=== PATIENT | male | born 1970 | race American Indian/Alaskan Native ===

== ENCOUNTER 2017-04-08 20:39 | Inpatient (IN) | payer OTHER ==
--- NOTE | 2017-04-08 21:11 | ED PDOC ---
Arrival/HPI - General Chief Complaint: Syncope Time Seen by Provider: 04/08/17 20:42 Historian: Patient, Spouse - History of Present Illness Narrative History of Present Illness (Text): 04/08/17 20:52 Moncho Ronquillo is a 46 year old male, whose past medical history includes chronic kidney disease on hemodialysis, hypertension, hyperlipidemia, IDDM, and CHF, who presents to the Emergency department accompanied by status post syncopal episode. states she was walking down the stairs with the patient when he began looking "off" and became very pale. states patient lost consciousness and she caught him before he fell to the floor. Wfe states after patient regained consciousness he had 1 episode of vomiting. notes patient was fully dialyzed earlier today and has experienced similar episodes in the past. Patient denies any fever, chills, chest pain, shortness of breath, diarrhea, urinary symptoms, back pain, neck pain, headache, dizziness, or any other complaints. PMD: Dr. Emy Vegas Time/Duration: Other (tonight) Symptom Onset: Gradual Symptom Course: Unchanged Activities at Onset: Rest, Light Context: Home Past Medical History - Provider Review Nursing Documentation Reviewed: Yes - Infectious Disease Hx of Infectious Diseases: None - Tetanus Immunization Tetanus Immunization: Unknown - Cardiac Hx Cardiac Disorders: Yes Hx Angina: Yes Hx Congestive Heart Failure: Yes Hx Hypertension: Yes Hx Peripheral Edema: Yes (ble) - Pulmonary Hx Respiratory Disorders: Yes (hypoxemia) Hx Sleep Apnea: Yes (on CPAP ) - Renal Hx Renal Disorder: Yes (JUVENTINO in the past) - Endocrine/Metabolic Hx Diabetes Mellitus Type 2: Yes (on insulin) - Hematological/Oncological Hx Blood Disorders: No - Musculoskeletal/Rheumatological Hx Falls: No - Psychiatric Hx Depression: No Hx Emotional Abuse: No Hx Physical Abuse: No Hx Substance Use: No - Past Surgical History Past Surgical History: No Previous - Anesthesia Hx Anesthesia: No Hx Anesthesia Reactions: No Hx Malignant Hyperthermia: No - Suicidal Assessment Feels Threatened In Home Enviroment: No Family/Social History - Physician Review Nursing Documentation Reviewed: Yes Family/Social History: Unknown Family HX Smoking Status: Former Smoker Hx Alcohol Use: No Hx Substance Use: No Hx Substance Use Treatment: No Allergies/Home Meds Allergies/Adverse Reactions: Allergies No Known Allergies Allergy (Verified 07/15/13 15:17) Home Medications: Home Meds Medication Instructions Recorded Confirmed Furosemide [Lasix] 40 mg PO BID PRN 06/21/16 04/08/17 Review of Systems - Physician Review All systems were reviewed & negative as marked: Yes - Review of Systems Constitutional: Normal. absent: Fevers Eyes: Normal ENT: Normal Respiratory: Normal. absent: SOB, Cough Cardiovascular: Syncope Gastrointestinal: Vomiting. absent: Abdominal Pain, Diarrhea Genitourinary Male: Normal. absent: Dysuria, Frequency, Hematuria, Urinary Output Changes Musculoskeletal: Normal. absent: Back Pain, Neck Pain Skin: Normal Neurological: Normal. absent: Headache, Dizziness Endocrine: Normal Hemo/Lymphatic: Normal Psychiatric: Normal Physical Exam Vital Signs Reviewed: Yes Vital Signs Temp Pulse Resp BP Pulse Ox 04/09/17 01:05 79 17 114/48 L 98 04/08/17 23:27 76 20 116/59 L 96 04/08/17 20:41 98.7 F 58 L 16 101/65 96 Temperature: Afebrile Blood Pressure: Normal Pulse: Regular Respiratory Rate: Normal Appearance: Positive for: Well-Appearing, Non-Toxic, Comfortable Pain Distress: None Mental Status: Positive for: Alert and Oriented X 3 Finger Stick Blood Glucose: 169 - Systems Exam Head: Present: Atraumatic, Normocephalic Pupils: Present: PERRL Extroacular Muscles: Present: EOMI Conjunctiva: Present: Normal Ears: Present: Normal, NORMAL TM, Normal Canal. No: Erythema, TM Bulging, Fluid , TM Perf Mouth: Present: Moist Mucous Membranes Pharnyx: Present: Normal. No: ERYTHEMA, EXUDATE, TONSILS ENLARGED, Peritonsilar Swelling, Uvular Deviation, Muffled/Hoarse Voice, Strider, Soft Palate/Uvular Edema Neck: Present: Normal Range of Motion. No: Meningeal Signs, MIDLINE TENDERNESS , Paraspinal Tenderness Respiratory/Chest: Present: Clear to Auscultation, Good Air Exchange. No: Respiratory Distress, Accessory Muscle Use Cardiovascular: Present: Regular Rate and Rhythm, Normal S1, S2. No: Murmurs Abdomen: Present: Normal Bowel Sounds. No: Tenderness, Distention, Peritoneal Signs Back: Present: Normal Inspection Upper Extremity: Present: Normal Inspection. No: Cyanosis, Edema Lower Extremity: Present: Normal Inspection. No: Edema Neurological: Present: GCS=15, CN II-XII Intact, Speech Normal, Motor Func Grossly Intact, Normal Sensory Function, Normal Cerebellar Funct, Memory Normal Skin: Present: Warm, Dry, Normal Color. No: Rashes Psychiatric: Present: Alert, Oriented x 3, Normal Insight, Normal Concentration Medical Decision Making ED Course and Treatment: 04/08/17 20:52 Impression: 46 year old male presents s/p syncopal episode tonight. Differential Diagnosis included but are not limited to: syncope Plan: -- CT Head w/o contrast -- EKG -- CXR -- Labs, troponin, blood cultures -- Reassess and disposition Prior Visits: Notes and results from previous visits were reviewed. On 06/18/2016, pt was seen in the Emergency department for increased blurry vision and leg swelling. Pt was admitted to the hospital for further evaluation. Progress Notes: Reviewed EKG, sinus tachycardia at [address] bpm[address] Non-specific ST/T wave changes. 04/08/17 22:15 Reviewed CXR, shows no acute processes. 04/08/17 22:[address] Head, shows: 1. No acute intracranial hemorrhage or acute territorial type infarct. 2. Mild atrophy. 3. Within the right frontal convexity, there is a small extra-axial lesion with an adjacent defect of the inner table of the skull. This lesion measures approximately 0.9 x 0.6 cm. One possible etiology is a meningioma, although additional etiologies cannot be excluded. A nonemergent MRI with/without contrast is recommended. 04/08/17 22:[address] Vegas, who is aware and agrees with plan. Accepts pt in to his service. Pt will go to Telemetry observation for syncope. Pt is no acute distress. Discussed results and hospital observation plan with pt , who is aware and verbalizes understanding. - Lab Interpretations Lab Results: 04/08/17 21:20 04/08/17 21:20 Lab Results 04/08/17 21:20: PT 11.0, INR 1.02, APTT 23.6 L 04/08/17 21:20: WBC 5.9 D, RBC 3.77, Hgb 10.5 L, Hct 33.3 L, MCV 88.3, MCH 27.9 , MCHC 31.5, RDW 15.6 H, Plt Count 139, MPV 9.2, Gran % 73.4 H, Lymph % (Auto) 16.8 L, [place] % (Auto) 7.3 H, Eos % (Auto) 2.2, Baso % (Auto) 0.3, Gran # 4.32, Lymph # 1.0 L, [place] # 0.4, Eos # 0.1, Baso # 0.02 04/08/17 21:20: Sodium 140, Potassium 3.8, Chloride 94 L, Carbon Dioxide 32, Anion Gap 18, BUN 38 H, Creatinine , Est GFR ( Amer) 7, Est GFR (Non-Af Amer) 6, Random Glucose 156 H, Calcium 9.5, Total Bilirubin 0.7, AST 40, ALT 24 , Alkaline Phosphatase 74, Troponin I 0.05 D, Total Protein 8.4 H, Albumin 4.5 , Globulin 3.8, Albumin/Globulin Ratio 1.2 I have reviewed the lab results: Yes - RAD Interpretation Narrative RAD Interpretations (Text): Chest X-ray shows no acute processes. CT Head shows: Brain: Within the right frontal convexity, there is a small extra-axial lesion with an adjacent defect of the inner table of the skull. This lesion measures approximately 0.9 x 0.6 cm. One possible etiology is a meningioma, although additional etiologies cannot be excluded. The white- gardner differentiation is preserved demonstrating no acute territorial type infarct. There is mild prominence of the ventricles and sulci, compatible with atrophy. No acute intracranial hemorrhage is seen. Midline shift: There is no midline shift. Ventricles: See above. Bones/joints: The calvarium demonstrates no evidence for a depressed fracture. Soft tissues: No acute abnormality. Vasculature: There is atherosclerotic calcification of the cavernous internal carotid arteries. Sinuses: Unremarkable as visualized. No acute sinusitis. Mastoid air cells: No mastoid effusion. IMPRESSION: 1. No acute intracranial hemorrhage or acute territorial type infarct. 2. Mild atrophy. 3. Within the right frontal convexity, there is a small extra-axial lesion with an adjacent defect of the inner table of the skull. This lesion measures approximately 0.9 x 0.6 cm. One possible etiology is a meningioma, although additional etiologies cannot be excluded. A nonemergent MRI with/without contrast is recommended. Radiology Orders: 04/08/17 20:52 HEAD W/O CONTRAST [CT] Stat 04/08/17 20:58 CHEST ONE VIEW [RAD] Stat Medical Technologist Generalist: ED Physician, Radiologist - EKG Interpretation Interpreted by ED Physician: Yes Type: 12 lead EKG - Medication Orders Current Medication Orders: Acetaminophen (Tylenol 325mg Tab) 650 mg PO Q4H PRN PRN Reason: Pain, Mild (1-3) Insulin Human Regular (Humulin R Low) 0 units SC ACHS [facility] PRN Reason: Protocol - Scribe Statement The provider has reviewed the documentation as recorded by the Scribe Radha Gilliam Provider Attestation: All medical record entries made by the Scribe were at my direction and personally dictated by me. I have reviewed the chart and agree that the record accurately reflects my personal performance of the history, physical exam, medical decision making, and the department course for this patient. I have also personally directed, reviewed, and agree with the discharge instructions and disposition. Disposition/Present on Arrival - Present on Arrival Any Indicators Present on Arrival: No History of DVT/PE: No History of Uncontrolled Diabetes: Yes Urinary Catheter: No History of Decub. Ulcer: No History Surgical Site Infection Following: None - Disposition Have Diagnosis and Disposition been Completed?: Yes Diagnosis: Syncope Disposition: HOSPITALIZED Disposition Time: 23:00 Condition: GOOD
[2017-04-08 21:30] LABS: ADD MANUAL DIFF? NO
[2017-04-08 21:34] LABS: BASO # 0.02 K/mm3 (0.0-2.0); BASO % 0.3 % (0.0-3.0); EOS # 0.1 (0.0-0.7); EOS % 2.2 % (1.5-5.0); GRAN # 4.32 (1.4-6.5); GRAN % 73.4 % (50.0-68.0); HEMATOCRIT 33.3 % (42.0-52.0); LYMPH % 16.8 % (22.0-35.0); MEAN CELL VOLUME 88.3 fL (80.0-105.0); MEAN CORPUSCULAR HEMOGLOBIN 27.9 pg (25.0-35.0); MEAN CORPUSCULAR HGB CONC 31.5 g/dl (31.0-37.0); MEAN PLATELET VOLUME 9.2 fl (7.0-11.0); MONO # 0.4 (0.1-0.6); MONO % 7.3 % (1.0-6.0); PLATELET COUNT 139 10^3/uL (120.0-450.0); RED CELL DISTRIBUTION WIDTH 15.6 % (11.5-14.5); WHITE BLOOD COUNT 5.9 10^3/ul (4.5-11.0)
[2017-04-08 21:44] LABS: ALB/GLOB RATIO 1.2 (1.1-1.8); BILIRUBIN,TOTAL 0.7 mg/dL (0.2-1.3); CALCIUM 9.5 mg/dL (8.4-10.5); POTASSIUM 3.8 mmol/L (3.6-5.0); TOTAL PROTEIN 8.4 g/dL (5.8-8.3)
[2017-04-08 21:45] LABS: INR 1.02 (0.93-1.08); PARTIAL THROMBOPLASTIN TIME 23.6 Seconds (23.7-30.8)
[2017-04-08 21:55] LABS: TROPONIN I 0.05 ng/mL
--- NOTE | 2017-04-08 22:33 | CT ---
EXAM: CT Head Without Intravenous Contrast CLINICAL HISTORY: The patient age is 46 years old and is male; Signs and symptoms; Dizziness and other: Nausea; Patient HX: Dizziness, light headed and nausea post dialysis today; Additional info: Syncope Facility exam id and description: Ct heads head w/o contrast TECHNIQUE: Axial computed tomography images of the head/brain without intravenous contrast. This CT exam was performed using one or more of the following dose reduction techniques: automated exposure control, adjustment of the mA and/or kV according to patient size, and/or use of iterative reconstruction technique. EXAM DATE/TIME: 04/08/2017 8:52 PM COMPARISON: No relevant prior studies available. FINDINGS: Brain: Within the right frontal convexity, there is a small extra-axial lesion with an adjacent defect of the inner table of the skull. This lesion measures approximately 0.9 x 0.6 cm. One possible etiology is a meningioma, although additional etiologies cannot be excluded. The white-gardner differentiation is preserved demonstrating no acute territorial type infarct. There is mild prominence of the ventricles and sulci, compatible with atrophy. No acute intracranial hemorrhage is seen. Midline shift: There is no midline shift. Ventricles: See above. Bones/joints: The calvarium demonstrates no evidence for a depressed fracture. Soft tissues: No acute abnormality. Vasculature: There is atherosclerotic calcification of the cavernous internal carotid arteries. Sinuses: Unremarkable as visualized. No acute sinusitis. Mastoid air cells: No mastoid effusion. IMPRESSION: 1. No acute intracranial hemorrhage or acute territorial type infarct. 2. Mild atrophy. 3. Within the right frontal convexity, there is a small extra-axial lesion with an adjacent defect of the inner table of the skull. This lesion measures approximately 0.9 x 0.6 cm. One possible etiology is a meningioma, although additional etiologies cannot be excluded. A nonemergent MRI with/without contrast is recommended.
[2017-04-09 03:00] VITALS: BMI 43.0
[2017-04-09] MEDS: Insulin Reg-LOW-Coverage SC SCH ×4 (08:18→22:48)
--- NOTE | 2017-04-09 08:39 | HP ---
HISTORY OF PRESENT ILLNESS: This is a 46-year-old -Turk[place] male who was referred to [facility], brought in by ambulance when he had a syncopal episode at his family's home. The pat arnol was status post dialysis earlier in the day. This is the second episode in the last several wee ks where the patient was reported as having a syncopal episode. He was previously admitted to [facility] in [place], [place]. He recently had started dialysis for chronic kidney disease. He has a history of insulin-dependent diabetes, cardiomyopathy, hypertension. ALLERGIES: He has no known allergies. SOCIAL HISTORY: He is a nonsmoker, nondrinker, nondrug user. HOME MEDICATIONS: The only thing that is listed in the system is Lasix. He is not sure of all the m eds that he is taking at the moment. He states that over the last several weeks people have been aiden nging his meds around. REVIEW OF SYSTEMS: Twelve systems are reviewed. Pertinent findings as stated above. PHYSICAL EXAMINATION: VITAL SIGNS: His temp is now 98, his pulse is 79, his blood pressure is 114/48, his respiratory rate is 20, his oxygen sat is 98% on room air. GENERAL: He is alert and oriented x 3. NECK: Supple. HEART: S1, S2 rhythm. CHEST: There is a catheter in the right chest which they have been using for dialysis. He states th at this past Thursday he was at a [facility] where they dilated a vein in his left upper arm in anti cipation of doing dialysis. ABDOMEN: Obese, soft with positive bowel sounds. EXTREMITIES: Show trace edema. LABORATORY DATA: His sodium is 140, potassium 3.8, chloride 94, BUN 38, creatinine 9.4, blood sugar was 156. His troponin was 0.05. His total protein is 8.4. His PT is 11 with an INR of 1.02, PTT is 23.6. CBC shows WBC of 5.9, RBC 3.77, hemoglobin 10.5, hematocrit 33.3, platelet count 139. The CAT scan of the head was reviewed by a radiologist who is documenting that there is no acute intr acranial hemorrhage or acute territorial infarct. There is mild atrophy, and he is stating that with in the right frontal convexity there is a small extraaxial lesion with adjacent defect in the inner t able of the skull measuring 0.9 x 0.6 cm. Possible etiology as per the radiologist is hemangioma. C hest x-ray was reported as being clear through the Emergency Room. IMPRESSION: 1. Syncope. 2. Chronic renal disease. 3. Uncontrolled insulin-dependent diabetes. 4. History of heart disease, cardiomyopathy. I have discussed the clinical findings and diagnostic studies to this point with the patient and his . Will request the individual consultants to coordinate the patient's care and assess these recu rrent episodes of syncope that the patient is having. I adjusted his insulin requirements. I have a lso discussed with the patient the need for closer followup. More than 40 minutes have been spent re viewing the studies, discussing these findings and plan of care. Will get serial cardiac enzymes. T he patient will be followed with fingerstick blood sugars at this time. Shaina Vegas MD cc: [id number] TT: 04/09/2017 08:38:56 mn
[2017-04-09 09:19] LABS: ADD MANUAL DIFF? NO
[2017-04-09 09:29] LABS: BASO # 0.02 K/mm3 (0.0-2.0); BASO % 0.4 % (0.0-3.0); EOS # 0.1 (0.0-0.7); EOS % 2.1 % (1.5-5.0); GRAN # 3.53 (1.4-6.5); GRAN % 67.9 % (50.0-68.0); HEMATOCRIT 32.1 % (42.0-52.0); LYMPH # 1.1 (1.2-3.4); LYMPH % 21.9 % (22.0-35.0); MEAN CELL VOLUME 89.2 fL (80.0-105.0); MEAN CORPUSCULAR HEMOGLOBIN 27.8 pg (25.0-35.0); MEAN CORPUSCULAR HGB CONC 31.2 g/dl (31.0-37.0); MONO # 0.4 (0.1-0.6); MONO % 7.7 % (1.0-6.0); PLATELET COUNT 129 10^3/uL (120.0-450.0); RED CELL DISTRIBUTION WIDTH 15.7 % (11.5-14.5); WHITE BLOOD COUNT 5.2 10^3/ul (4.5-11.0)
[2017-04-09 09:36] LABS: ALB/GLOB RATIO 1.2 (1.1-1.8); BILIRUBIN,TOTAL 0.7 mg/dL (0.2-1.3); CALCIUM 9.3 mg/dL (8.4-10.5); POTASSIUM 4.4 mmol/L (3.6-5.0); TOTAL PROTEIN 7.7 g/dL (5.8-8.3)
[2017-04-09 09:47] LABS: TROPONIN I 0.06 ng/mL
--- NOTE | 2017-04-09 09:54 | RAD ---
PROCEDURE: CHEST RADIOGRAPH, 1 VIEW HISTORY: Pain COMPARISON: 06/18/2016. FINDINGS: The right central venous catheter terminates in the SVC. LUNGS: The lungs are clear. PLEURA: No pneumothorax or pleural fluid seen. CARDIOVASCULAR: Normal. OSSEOUS STRUCTURES: No significant abnormalities. VISUALIZED UPPER ABDOMEN: Normal. OTHER FINDINGS: None. IMPRESSION: No acute findings.
--- NOTE | 2017-04-09 11:19 | CP.PCM.CON ---
History of Present Illness - History of Present Illness History of Present Illness: Initial Nephrology Consultation: Assessment: Stable Diabetic chronic Kidney Disease (E11.22) biopsy proven Hypertensive Chronic Kidney Disease (I12.0) End stage renal disease (N18.6) dependence on hemodialysis (Z99.2) (MWF) via permacath Anemia (D64.9), Hyperphosphatemia (E83.39), Secondary Hyperparathyroidism (E21.1 ), HTN (I12.0) morbid obesity dizziness/syncope ? hemodynamic due to fluid removal during HD and his significant wt loss over time. Plan: No acute need for dialysis today. Will plan for dialysis tomorrow. Continue with Nephrovite 1 tab/day. PRBC as needed for anemia. On MELANY as Mircera 50 mcg q 2 weeks, last Hb 10.5 Continue with phos binders home dose, last phos level 4.7 Continue with calcitriol 0.5 mcg with dialysis. Last PTH level 951 BP controlled without meds. Pt was advised to limit weight gain between dialysis treatment to 1 Kgs/day. will likely need to increase his EDW as outpt. Glycemic control, Dialysis consistent diet Further work up/management as per primary team. neurology and cardiology were requested to evaluate him. Dose meds/antibiotics (if needed) for ESRD status. Avoid fleets enema/magnesium based laxatives. Thanks for allowing me to participate in care of your patient. Will follow patient with you. Please call if any Qs Dr Pedro Denton Office: [phone] Chief Complaint; dizziness and loss of consciousness HPI: Pt is a 46 y/o M with hx of ESRD on hemodialysis (MWF) via Rt chest permacath, has maturing left AVF, last dialysis yesterday, chronic anemia, hyperphosphatemia, secondary hyperparathyroidism, Diabetes Mellitus, hypertension, morbid obesity presented with complaints of dizziness and transient loss of consciousness at home yesterday evening. pt says he finished dialysis at 6:30 in evening, 3.7 Kgs was taken off and he left the unit at 144.6 Kgs. At home, he had episode of dizziness soon after his EDW was lowered from 149 kgs to 145 kgs over last 2 weeks. pt says he had lost close to 60 lbs weight over last few month. reports similar incidence 2 weeks ago when his all BP meds were stopped. he was admitted to [facility] in february 2017 and started on dialysis due to uremic. he has biopsy proven diabetic nephropathy. Denies chest pain, palpitation, shortness of breath, leg swelling he feels usual self at this time ROS: Constitutional Symptoms: Denies fever. No chills. had significant Wt loss Eyes: denies change in vision, denies watery eyes, denies double vision Ears/Nose/Mouth/Throat: Denies Abnormal Taste. No Bad breath or Bad Taste. Cardiovascular: No chest pain. There is no shortness of breath. No palpitations. Pulmonary: No shortness of breath or cough. Gastrointestinal: denies abdominal pain No nausea. No vomiting. Denies change in bowel habits. Denies Bleeding Genitourinary: makes small urine. No associated pain or blood. Neurological: Denies headaches. c/o dizziness and loss of consciousness yesterday. Denies loss of balance. Denies weakness, denies tingling/numbness Dermatological: No Rash or Bruising or ulcers. Psychiatric: Denies Anxiety. No depression. Denies hallucinations. Rheumatological: No joint pain. Denies Joint swelling Endocrine: Denies over tiredness. Denies Fatigue and denies Heat/Cold Intolerance. All other negative. Physical Examination: General Appearance: Comfortable, in no acute respiratory distress, co-operative . morbid obese Vitals reviewed and noted as below BMI 43 Head; Atraumatic, normocephalic ENT: no ulcers no thrush. Tongue is midline. Oropharynx: no rash or ulcers. EYES: Pupils are equal, round and reactive to light accommodation. Eye muscles and extraocular movement intact. Sclera is anicteric. Neck; supple no lymphadenopathy, no thyromegaly or bruit Lungs: Normal respiratory rate/effort. Breath sounds bilateral equal and clear. Rt chest permacath Heart: Normal rate. s1s2 normal. No rub or gallop. Extremities: no edema. No varicose veins Neurological: Patient is alert, awake and oriented to person, place and time. No focal deficit. Strength bilateral appropriate and equal Skin: Warm and dry. Normal turgor. No rash. Palpitation: Normal elasticity for age Abdomen: Abdomen is soft. Bowel sounds +. There is no abdominal tenderness, no guarding/rigidity or organomegaly Psych: normal insight and normal affect/mood MSK: no joint tenderness or swelling. Digits and nails normal, no deformity : kidney or bladder not palpable Access: left arm AVF Labs/imaging reviewed. Past medical history, past surgical history, family history, social history, allergy reviewed and noted as below Family Hx: no hx of CKD. Non contributory echo february 2017: normal LVEF Past Patient History - Infectious Disease Hx of Infectious Diseases: None - Tetanus Immunizations Tetanus Immunization: Unknown - Past Social History Smoking Status: Former Smoker - CARDIAC Hx Cardiac Disorders: Yes Hx Angina: Yes Hx Congestive Heart Failure: Yes Hx Hypertension: Yes Hx Peripheral Edema: Yes (ble) - PULMONARY Hx Respiratory Disorders: Yes (hypoxemia) Hx Sleep Apnea: Yes (on CPAP ) - NEUROLOGICAL Hx Neurological Disorder: Yes Other/Comment: syncope - HEENT Hx HEENT Problems: No - RENAL Hx Chronic Kidney Disease: Yes (JUVENTINO in the past) - ENDOCRINE/METABOLIC Hx Diabetes Mellitus Type 2: Yes (on insulin) - HEMATOLOGICAL/ONCOLOGICAL Hx Blood Disorders: No - INTEGUMENTARY Hx Dermatological Problems: No - MUSCULOSKELETAL/RHEUMATOLOGICAL Hx Falls: No - GASTROINTESTINAL Hx Gastrointestinal Disorders: No - GENITOURINARY/GYNECOLOGICAL Hx Genitourinary Disorders: No - PSYCHIATRIC Hx Depression: No Hx Emotional Abuse: No Hx Physical Abuse: No Hx Substance Use: No - SURGICAL HISTORY Hx Surgeries: No - ANESTHESIA Hx Anesthesia: No Hx Anesthesia Reactions: No Hx Malignant Hyperthermia: No Meds Allergies/Adverse Reactions: Allergies Allergy/AdvReac Type Severity Reaction Status Date / Time No Known Allergies Allergy Verified 07/15/13 15:17 - Medications Medications: Current Medications Acetaminophen (Tylenol 325mg Tab) 650 mg PO Q4H PRN PRN Reason: Pain, Mild (1-3) Insulin Human Regular (Humulin R Low) 0 units SC ACHS [facility] PRN Reason: Protocol Last Admin: 04/09/17 08:18 Dose: Not Given Vitamin B Complex/Vit C/Folic Acid (Nephro-Ynes) 1 tab PO 0800 [facility] Results - Vital Signs Recent Vital Signs: Last Vital Signs Temp 98 F 04/09/17 06:00 Pulse 86 04/09/17 10:59 Resp 13 04/09/17 10:59 BP 145/67 04/09/17 10:59 Pulse Ox 93 L 04/09/17 08:00 - Labs Result Diagrams: 04/09/17 08:00 04/09/17 08:00 Labs: Laboratory Results - last 24 hr 04/09/17 04/09/17 08:00 08:00 WBC 5.2 RBC 3.60 Hgb 10.0 L Hct 32.1 L MCV 89.2 MCH 27.8 MCHC 31.2 RDW 15.7 H Plt Count 129 MPV 9.0 Gran % 67.9 Lymph % (Auto) 21.9 L [place] % (Auto) 7.7 H Eos % (Auto) 2.1 Baso % (Auto) 0.4 Gran # 3.53 Lymph # 1.1 L [place] # 0.4 Eos # 0.1 Baso # 0.02 Sodium 138 Potassium 4.4 Chloride 95 L Carbon Dioxide 30 Anion Gap 17 BUN 45 H Creatinine 11.2 H* Est GFR ( Amer) 6 Est GFR (Non-Af Amer) 5 Random Glucose 155 H Calcium 9.3 Total Bilirubin 0.7 AST 23 ALT 25 Alkaline Phosphatase 61 Lactate Dehydrogenase 461 Total Creatine Kinase 174 Troponin I 0.06 Total Protein 7.7 Albumin 4.2 Globulin 3.5 Albumin/Globulin Ratio 1.2
[2017-04-09 15:34] LABS: TROPONIN I 0.05 ng/mL
--- NOTE | 2017-04-09 19:29 | CON ---
DATE: 04/09/2017 HISTORY OF PRESENT ILLNESS: This is a 46-year-old black male with past medical history of chronic ki dney disease on hemodialysis, hypertension, hyperlipidemia, insulin-dependent diabetes, CHF. Came to the Emergency Room with a syncopal episode and patient's says that walking down the stairs and began to feel like passing out. Became pale and he lost consciousness and she caught him before he c ould fall on the floor. The patient regained consciousness and had one episode of vomiting. No head aches, no dizziness. Called to evaluate the patient. CAT scan of the head was done. CT showed poss ible right frontal meningioma. ALLERGIES: No known drug allergies. REVIEW OF SYSTEMS: A 10-point review of system was negative except as noted above syncopal episode. PHYSICAL EXAMINATION: VITAL SIGNS: Blood pressure 101/65. HEENT: Normocephalic, atraumatic. NECK: Supple. NEUROLOGIC: Alert, awake, oriented. No aphasia. Cranial nerves II-XII were tested. Pupils reactiv e. EOM intact. Visual wesley full. No facial asymmetry. Tongue midline. Motor examination: Move s all the extremities equally. Tone normal. Deep tendon reflexes 1+. Both plantars downgoing. Sen marie appears intact. Cerebellar, gait was deferred. IMPRESSION: Syncope, less likely a seizure. CAT scan of the head was done, which showed possible ri ght frontal meningioma. The patient also has kidney failure, on hemodialysis. Workup in progress. We will follow up. Damián Urbina MD cc: [id number] TT: 04/09/2017 19:28:06 Confirmation # [id number] Dictation # [id number] sn
--- NOTE | 2017-04-09 20:42 | CON ---
DATE: 04/09/2017 LOCATION: ICU 128, room 5. HISTORY OF PRESENT ILLNESS: This is a 46-year-old male with known history of type 2 insulin-requirin g diabetes, presenting here with a sudden syncopal episode and brief loss of consciousness as witness ed by his and is now being admitted for cardiac and neurologic evaluation and also being referre d for diabetic management. PAST MEDICAL HISTORY: As mentioned above, history of type 2 diabetes, previously on insulin therapy, but has apparently been switched over to oral agents as per the family, but the exact name of the dc dications is not available at this time. History of hypertensive cardiovascular disease and dyslipid emia, history of diabetic retinopathy, polyneuropathy, and nephropathy with end-stage renal disease a nd dialysis dependence, history of coronary artery disease and peripheral arterial disease and vascul opathy. He actually developed the aforementioned syncopal episode a few hours after hemodialysis on the day of admission. FAMILY HISTORY: Positive for hypertension and diabetes. SOCIAL HISTORY: The patient has a supportive family. He has a prior history of smoking, but quit a few years ago. REVIEW OF SYSTEMS: As mentioned above, admits to generalized body weakness with easy fatigability an d tiredness and suboptimal energy level. Also admits to episodic bouts of dizziness and lightheadedn ess, worse on the day of admission, especially following hemodialysis as noted. No chest pains or pa lpitations or PNDs, but admits to episodic shortness of breath, especially on exertion. His oral int sonya has been variable and suboptimal as per the family with persistent dyspepsia and variable meal po rtions. Also, admits to habitual constipation. PHYSICAL EXAMINATION: GENERAL: This is an overweight male in no apparent distress. VITAL SIGNS: Blood pressure of 100/70, pulse of 74 beats per minute and regular, temperature 98, res pirations 20. HEENT: Head normocephalic. Eyes anicteric with pink conjunctivae. Fundoscopy not possible at this time. Ears, nose and throat otherwise normal. NECK: Supple. Thyroid gland is normal size. No carotid bruits. No cervical adenopathy. CARDIOPULMONARY: Some adynamic precordium. S1, S2 is rapid and regular. LUNGS: Clear to auscultation. ABDOMEN: Obese, soft with positive bowel sounds. EXTREMITIES: No peripheral edema. Pulses are +2 bilaterally. LABORATORY DATA: His chemistry showed a BUN of 45, sodium 138, potassium 4.4, chloride 95, CO2 30, g lucose 155, and creatinine 11.2. His glucose levels have ranged from 128-134 mg/dL. ASSESSMENT: This is a 46-year-old male with uncontrolled type 2 diabetes, presenting here with sudde n syncopal episode and the possibility of whether we are dealing with a cardiac versus neurologic carlene hugh metabolic etiology for a syncopal event, is being worked up at this time. With his variable and suboptimal meal portions, there is always a possibility of sudden symptomatic hypoglycemia with neuro glycopenic and hyperadrenergic manifestations of the same. PLAN OF MANAGEMENT: We will clarify with the family regarding the exact dosing of his oral hypoglyce tanner therapy and also the previous insulin therapy as undertaken and used by the patient. In the mean time, we will continue the low-dose correction scale using regular insulin as given and will observe his glycemic fluctuations and if fasting hyperglycemic levels persist and supervene, then we will sta rt him on a very low dose basal insulin therapy as indicated. If postprandial glycemic fluctuations supervene, then we will start him on low dose and short-acting oral hypoglycemic therapy such as Pran din, which is safe with renal patients and we will prescribe them accordingly. We will obtain a hemo globin A1c to confirm his prior glycemic control and baseline thyroid function studies will be ordere d. We will obtain serial chemistries and supplement accordingly as needed. We will follow. Annita Méndez MD cc: [id number] TT: 04/09/2017 20:41:51 Confirmation # [id number] Dictation # [id number] brendon
[2017-04-09 22:43] LABS: TROPONIN I 0.05 ng/mL
--- NOTE | 2017-04-09 23:55 | CARD ---
APPROVED REPORT EKG Measurement Heart [id number] <Conclusion> Sinus tachycardia with premature atrial complexes Possible Left atrial enlargement Septal infarct, age undetermined Abnormal ECG
[2017-04-10 06:35] LABS: ADD MANUAL DIFF? NO
[2017-04-10 07:16] LABS: BASO # 0.02 K/mm3 (0.0-2.0); BASO % 0.4 % (0.0-3.0); EOS # 0.2 (0.0-0.7); EOS % 3.4 % (1.5-5.0); GRAN # 2.87 (1.4-6.5); GRAN % 60.1 % (50.0-68.0); HEMATOCRIT 32.3 % (42.0-52.0); LYMPH # 1.2 (1.2-3.4); MEAN CELL VOLUME 87.1 fL (80.0-105.0); MEAN CORPUSCULAR HEMOGLOBIN 27.2 pg (25.0-35.0); MEAN CORPUSCULAR HGB CONC 31.3 g/dl (31.0-37.0); MEAN PLATELET VOLUME 9.3 fl (7.0-11.0); MONO # 0.5 (0.1-0.6); MONO % 10.1 % (1.0-6.0); PLATELET COUNT 146 10^3/uL (120.0-450.0); RED CELL DISTRIBUTION WIDTH 15.4 % (11.5-14.5); WHITE BLOOD COUNT 4.8 10^3/ul (4.5-11.0)
[2017-04-10] MEDS: Insulin Reg-LOW-Coverage SC SCH ×4 (07:30→23:25)
[2017-04-10 08:24] LABS: ALB/GLOB RATIO 1.3 (1.1-1.8); BILIRUBIN,TOTAL 0.5 mg/dL (0.2-1.3); CALCIUM 8.9 mg/dL (8.4-10.5); MAGNESIUM 2.5 mg/dL (1.7-2.2); PHOSPHOROUS 6.7 mg/dL (2.5-4.5); TOTAL PROTEIN 7.7 g/dL (5.8-8.3)
--- NOTE | 2017-04-10 10:11 | CON ---
DATE: 04/09/2017 SERVICE: Cardiology. REASON FOR CONSULTATION AND FOLLOWUP: Syncope, end-stage renal disease on dialysis, started 5 weeks ago. BRIEF CLINICAL HISTORY: This is a 46-year-old morbidly obese male with past medical history of chron ic renal insufficiency, history of uncontrolled hypertension in the past with the kidney, admitted ye sterday after having had 2 episodes of syncope after dialysis. The patient denies any chest pain, de nies any shortness of breath, denies any palpitation. The patient's is at the bedside. PAST MEDICAL HISTORY: Significant for morbid obesity, hypertension, hyperlipidemia, chronic kidney d isease, started on dialysis 5 weeks ago. Before, the patient was getting dialysis from right ____ no w the patient has an AV fistula. Past history is significant, as mentioned, morbid obesity. Previous cardiac workup as follows: The patient had a stress test 07/12/2014 that shows probably nor mal SPECT myocardial perfusion study, heterogeneous activity fixed defect, ejection fraction 51%. Th e patient had echocardiography 07/10/2014 that shows ejection fraction 50%-55%, trace aortic regurgit ation, moderate valvular aortic stenosis, trace mitral regurgitation, mild tricuspid regurgitation, R V systolic pressure 45. CURRENT MEDICATIONS: The patient is on Lasix home and some blood pressure medication, which was on h old after having syncope. REVIEW OF SYSTEMS: As per HPI. PHYSICAL EXAMINATION: VITAL SIGNS: Temperature afebrile, heart rate ____, blood pressure 145/60. HEENT: ____ PERRLA. Extraocular muscles intact. NECK: Supple. No carotid bruits. No thyromegaly. CHEST: Clear to auscultation. HEART: S1, S2 regular. ABDOMEN: Soft. EXTREMITIES: Clubbing and cyanosis negative. LABORATORY DATA: Blood workup as follows: WBC ____, hemoglobin ____, hematocrit 32.1, platelet coun t 129. Chemistry shows sodium 130, potassium 4.4, chloride 95, carbon dioxide 30, anion gap of 17, B UN 15, creatinine 11.2. IMPRESSION: Syncope, 2 episodes. The patient said that after dialysis, went to the mother's house an d was sitting on the stoop when patient's eyes rolled up and felt that he had lost conscious. Mom tr ied to wake him up, but did not respond. The patient was given orange juice and tuna fish and patien t felt better. Then, patient was going home. On the way, while the patient was sitting in the car, picked up and patient had another episode of syncope, so came here. Denies any chest pain, shor tness of breath, any palpitation. Prior to that, patient 3 weeks ago, after dialysis started, had a s yncopal episode and admitted ____ workup was negative. Possibly this syncope is associated with post -dialysis hemoconcentration and orthostatic hypotension, but cannot rule out underlying arrhythmia. History of mild to moderate aortic stenosis, last echo in 2013. History of stress is negative. End- stage renal disease on dialysis, morbid obesity, body mass index 45 kg/m2, more than 317 pounds of we ight. RECOMMENDATION: We will get echo to assess LV function. We will get orthostatic hypotension, monito r in ICU. The patient is in ICU to monitor for any arrhythmia. Also will get a Holter monitor. Dis cussed with Dr. Vegas, discussed with the family. We will follow with you. Som Ashley MD cc: [id number] TT: 04/09/2017 15:48:02 Confirmation # [id number] Dictation # [id number] brendon
--- NOTE | 2017-04-10 10:12 | PN ---
DATE: 04/10/2017 A 46-year-old male on dialysis this morning. PHYSICAL EXAMINATION: VITAL SIGNS: His temp is 98, his pulse is 83, blood pressure is 127/69, oxygen sat is 95% on room ai r, his respiratory rate is 18. GENERAL: He is alert and oriented x 3. He offers no specific complaints this morning. LUNGS: Clear. HEART: Has an S1, S2 rhythm. ABDOMEN: Obese, soft, positive bowel sounds. EXTREMITIES: Show no evidence of edema. LABORATORY DATA: Shows a WBC of 4.8, RBC 3.71, hemoglobin 10.1, hematocrit 32.3, platelet count 146. His chemistry shows a sodium 138, potassium 4, chloride 95, the BUN is 62, the creatinine was 14.2, his blood sugar was 123. Phosphorus is 6.7, magnesium 2.5. LFTs are normal. His second troponin w as 0.05. His cholesterol is 207, his triglycerides are 142. ASSESSMENT AND PLAN: 1. The patient had a syncopal episode, is being followed by neurology. Evaluation is in progress. 2. Cardiology consult has been requested. He has a history of cardiomyopathy. 3. He has uncontrolled insulin-dependent diabetes. Compliance is an issue. He is being seen by end ocrinology, Dr. Méndez. He is currently on a fingerstick coverage regimen, to be adjusted modified. He is currently on dialysis at this time. An echocardiogram has been ordered and pending. He is on a renal diet. We will continue to monitor his blood sugar. All of the clinical findings have been d iscussed with the patient as well as the findings that are suggestive on the [facility] be reviewed with neurology. Shaina Vegas MD cc: [id number] TT: 04/10/2017 10:06:25 Confirmation # [id number] Dictation # [id number] en
[2017-04-10] MEDS ORDERED: Multivitamin Vitamin B Complex (Nephro-Vite) Tab ONE (11:04)
[2017-04-10] MEDS: Multivitamin Vitamin B Complex (Nephro-Vite) Tab PO SCH (11:05)
--- NOTE | 2017-04-10 11:37 | CP.PCM.PN ---
Subjective - Date & Time of Evaluation Date of Evaluation: 04/10/17 Time of Evaluation: 11:30 - Subjective Subjective: Follow up Nephrology Consultation: Assessment: Stable Diabetic chronic Kidney Disease (E11.22) biopsy proven Hypertensive Chronic Kidney Disease (I12.0) End stage renal disease (N18.6) dependence on hemodialysis (Z99.2) (MWF) via permacath Anemia (D64.9), Hyperphosphatemia (E83.39), Secondary Hyperparathyroidism (E21.1 ), HTN (I12.0) morbid obesity dizziness/syncope ? hemodynamic due to fluid removal during HD Plan: Plan for dialysis today as ordered. next HD thursday. Continue with Nephrovite 1 tab/day. PRBC as needed for anemia. On MELANY as Mircera 50 mcg q 2 weeks, last Hb 10.7 started him on renagel, last phos level 6.7 Continue with calcitriol 0.5 mcg with dialysis. Last PTH level 951 BP controlled without meds. Pt was advised to limit weight gain between dialysis treatment to 1 Kgs/day. Increase his EDW to 146 kgs as outpt. Glycemic control, Dialysis consistent diet Further work up/management as per primary team. neurology and cardiology are following. plan for MRI brain, echo, holter Dose meds/antibiotics (if needed) for ESRD status. Avoid fleets enema/magnesium based laxatives. RN was asked to check ambulatory pulse Ox. d/w at bedside. Thanks for allowing me to participate in care of your patient. Will follow patient with you. Please call if any Qs Dr Pedro Denton Office: [phone] HPI: Pt is a 46 y/o M with hx of ESRD on hemodialysis (MWF) via Rt chest permacath, has maturing left AVF, last dialysis yesterday, chronic anemia, hyperphosphatemia, secondary hyperparathyroidism, Diabetes Mellitus, hypertension, morbid obesity presented with complaints of dizziness and transient loss of consciousness at home yesterday evening. pt says he finished dialysis at 6:30 in evening, 3.7 Kgs was taken off and he left the unit at 144.6 Kgs. At home, he had episode of dizziness soon after his EDW was lowered from 149 kgs to 145 kgs over last 2 weeks. pt says he had lost close to 60 lbs weight over last few month. reports similar incidence 2 weeks ago when his all BP meds were stopped. he was admitted to [facility] in february 2017 and started on dialysis due to uremic. he has biopsy proven diabetic nephropathy. ROS: Denies chest pain, palpitation, shortness of breath, leg swelling he feels usual self at this time. upset due to getting all the tests such as MRI and not going home yet. Physical Examination: General Appearance: Comfortable, in no acute respiratory distress, co-operative . morbid obese Vitals reviewed and noted as below BMI 43 Lungs: Normal respiratory rate/effort. Breath sounds bilateral equal and clear. Rt chest permacath Heart: Normal rate. s1s2 normal. No rub or gallop. Extremities: no edema. No varicose veins Neurological: Patient is alert, awake and oriented to person, place and time. No focal deficit. Strength bilateral appropriate and equal Skin: Warm and dry. Normal turgor. No rash. Palpitation: Normal elasticity for age Abdomen: Abdomen is soft. Bowel sounds +. There is no abdominal tenderness, no guarding/rigidity or organomegaly Psych: normal insight and normal affect/mood MSK: no joint tenderness or swelling. Digits and nails normal, no deformity : kidney or bladder not palpable Access: left arm AVF and chest permacath Labs/imaging reviewed. Past medical history, past surgical history, family history, social history, allergy reviewed and noted as below Family Hx: no hx of CKD. Non contributory echo february 2017: normal LVEF Objective - Vital Signs/Intake and Output Vital Signs (last 24 hours): Temp Pulse Resp BP Pulse Ox 98.0 F 85 18 127/69 95 04/10/17 06:00 04/10/17 06:00 04/10/17 06:00 04/10/17 06:00 04/10/17 06:00 - Medications Medications: Current Medications Acetaminophen (Tylenol 325mg Tab) 650 mg PO Q4H PRN PRN Reason: Pain, Mild (1-3) Calcitriol (Rocaltrol) 0.5 mcg PO MWF JORDAN Last Admin: 04/10/17 11:05 Dose: 0.5 mcg Heparin Sodium (Porcine) (Heparin) 2,000 units IVP ONCE JORDAN PRN Reason: Protocol Insulin Human Regular (Humulin R Low) 0 units SC ACHS JORDAN PRN Reason: Protocol Last Admin: 04/10/17 07:30 Dose: Not Given Sevelamer HCl (Renagel) 1,600 mg PO TID [facility] Last Admin: 04/10/17 11:04 Dose: 1,600 mg Vitamin B Complex/Vit C/Folic Acid (Nephro-Ynes) 1 tab PO 0800 [facility] Last Admin: 04/10/17 11:05 Dose: 1 tab - Labs Labs: 04/10/17 06:01 04/10/17 06:01 PT 11.0 Seconds (9.9-11.8) 04/08/17 21:20 INR 1.02 (0.93-1.08) 04/08/17 21:20 APTT 23.6 Seconds (23.7-30.8) L 04/08/17 21:20
--- NOTE | 2017-04-10 13:21 | PN ---
DATE: 04/10/2017 ROOM: 276 This is a 46-year-old male with recent uncontrolled type 2 insulin-requiring diabetes, presenting her e with a sudden syncopal episode with a brief bout of unresponsiveness and is now undergoing neurolog ic and cardiac workup thereof, and is also being followed closely for metabolic management. His oral intake is quite variable as per the nursing staff and his glucose values have remained near optimal at this time. His glucose levels have ranged from 121-123 and 164 mg/dL. His latest chemistry showed a BUN of 62, sodium 138, potassium 4.0, chloride 95, CO2 28, glucose 123 and creatinine 14.2. So at this time, we will continue the low-dose correction scale using regular insulin as ordered as h is A1c is actually 6.8%, which is near optimal in terms of his outpatient metabolic control. He may do very well on just a low-dose oral hypoglycemic drug therapy as indicated. We will start him on Pr andin medications if hyperglycemic levels supervene in the next day or so as noted. We will follow. Annita Méndez MD cc: [id number] TT: 04/10/2017 13:20:10 Confirmation # [id number] Dictation # [id number] en
--- NOTE | 2017-04-10 16:47 | PN ---
DATE: 04/10/2017 REASON FOR CONSULTATION AND FOLLOWUP: Syncope, end-stage renal disease on dialysis. Dialysis starte d 5 weeks ago. BRIEF CLINICAL HISTORY: This is a 46-year-old morbidly obese male with past medical history signific ant for chronic renal insufficiency, history of uncontrolled hypertension. history of kidney disease, recently started dialysis 5 weeks ago. The patient had 2 episodes of syncope after dialysis, admit zohaib yesterday. Orthostatic was changed. The patient was significantly orthostatic hypotension yeste rday and the blood pressure dropped from 139-103. Prior to that, the patient had a blood pressure ly ing 128 and standing 116. Denies any chest pain, shortness of breath, seen in dialysis. PHYSICAL EXAMINATION: VITAL SIGNS: Temperature afebrile, heart rate 58, blood pressure 99/51 after the dialysis. Before d ialysis, the patient's blood pressure was 131/96 lying and sitting 147/91, standing 103/60. HEENT: PERRLA. Extraocular muscles intact. NECK: Supple. No carotid bruits. No thyromegaly. CHEST: Clear to auscultation. HEART: S1, S2 regular. ABDOMEN: Soft. EXTREMITIES: Clubbing and cyanosis negative. BLOOD WORKUP: As follows: WBC 4.8, hemoglobin 10.1, hematocrit 32.3 and platelet count 146. Chemis try shows sodium 130, potassium 4, chloride 95, carbon dioxide 28, anion gap of 19, BUN 16, creatinin e 14.2. IMPRESSION: Syncope, possible secondary to orthostatic hypotension secondary to postural hypotension after dialysis. The patient is still orthostatic hypotension, was on antihypertensive medication be fore, history of end-stage renal disease on dialysis started 5 weeks ago, history of hypertension, hi story of morbid obesity, diabetes, hypertension, hyperlipidemia. RECOMMENDATION: Hold all p.o. antihypertensive medication. Monitor electrolytes. Continue dialysis . Monitor, for orthostatic hypotension. Echo to rule out any structural heart disease. We will pu t baby aspirin and put low dose of atorvastatin. Monitor electrolytes and monitor for orthostatic hy potension. Further recommendation during hospital course. Thank you, Dr. Vegas, for providing the opportunity in taking care of the patient. We will follow w davey you. Blood cholesterol panel shows total triglyceride 142. Total cholesterol 207, LDL 98, HDL 4 8. We will follow with you. Previously, the patient had a stress test on 07/12/2013 that was normal myocardial perfusion study. The patient's last echo 07/10/2014, ejection fraction 55-60%, trace aortic regurgitation, moderate va lvular aortic stenosis, trace mitral regurgitation, mild tricuspid regurgitation, RV systolic pressur e 45. We will repeat another echo to see the progression of valvular heart disease, rule out any sig nificant structural heart disease. We will follow with you. Som Ashley MD cc: [phone] TT: 04/10/2017 15:50:58 Confirmation # [id number] Dictation # [id number] tn
[2017-04-11] MEDS: Multivitamin Vitamin B Complex (Nephro-Vite) Tab PO SCH (08:52)
[2017-04-11] MEDS: Insulin Reg-LOW-Coverage SC SCH ×4 (08:52→22:30)
--- NOTE | 2017-04-11 11:14 | PN ---
DATE: 04/11/2017 A 46-year-old male admitted to [facility] because of a syncopal episode. He is feeling better this morning. He is currently getting an echocardiogram PHYSICAL EXAMINATION: VITAL SIGNS: His temp is 98.4. His blood pressure is 107/62. His respiratory rate is 20. His oxyg en saturation is 100% on room air. Pulse is 85. GENERAL: He is alert and oriented x 3. NECK: Supple. LUNGS: Clear. HEART: An S1, S2 rhythm. ABDOMEN: Obese, soft with positive bowel sounds. EXTREMITIES: Show no evidence of edema. SKIN: He has a right anterior chest wall dialysis access and he had dialysis yesterday. IMPRESSION: 1. His blood sugar this morning was 158. He has a history of diabetes, being followed by endocrinol Dr. Dev kyle. Currently, is monitoring his fingerstick blood sugars to assess whether there is an in dication for medication, either a pill form or insulin. 2. He is being followed by nephrology for his chronic renal disease and currently is on Nephro-Ynes which is vitamin B complex with vitamin C and folic acid. Renagel 3 times a day, calcitriol Thursday, Thursday and Thursday. He is being followed by neurology. An MRI of the brain has been requested. T he initial CAT scan of his head raised the question of a right frontal meningioma. He currently is o n aspirin 81 mg daily and Lipitor 10 mg daily for his hyperlipidemia. We will continue current level of care and follow the patient. Shaina Vegas MD cc: [id number] TT: 04/11/2017 11:13:09 Confirmation # [id number] Dictation # [id number] tn
--- NOTE | 2017-04-11 12:01 | PN ---
DATE: 04/11/2017 ROOM: 276 SUBJECTIVE: This is a 46-year-old male with end-stage renal disease and dialysis dependence presenti ng here with a syncopal episode and a brief bout of unresponsiveness and has since then improved clin ically and metabolically as noted thereof. His oral intake, however, remains quite variable as per t he nursing staff. The latest glucose values have improved and have ranged from 121, 137 and 158 mg/d L. The latest chemistry shows a BUN of 62, sodium 138, potassium 4.0, chloride 95, CO2 28, glucose 1 23 and creatinine 14.2. His hemoglobin A1c is 6.8%, which is actually near optimal in terms of his o utpatient metabolic control of his diabetic condition. So at this time, we will start him back on a very low dose of short acting sulfonylurea, i.e. Prandin given as 0.5 mg t.i.d. before meals to start at lunchtime today as ordered. We will modify the coverage scale to obviate hypoglycemia and detail ed orders have been given. We will titrate incrementally as indicated to optimize metabolic control. We will follow. Annita Méndez MD cc: [id number] TT: 04/11/2017 12:01:16 Confirmation # [id number] Dictation # [id number] gustavo
--- NOTE | 2017-04-11 12:18 | MRI ---
PROCEDURE: MRI BRAIN WITHOUT CONTRAST HISTORY: MENINGIOMA COMPARISON: CT of the head 04/08/2017 TECHNIQUE: Multiplanar, multisequence MR images of the brain were obtained without intravenous contrast enhancement. FINDINGS: HEMORRHAGE: None DWI: No evidence of an acute or early subacute infarction. BRAIN PARENCHYMA: No mass effect or edema. No atrophy or chronic microvascular ischemic changes. VENTRICLES: Unremarkable. No hydrocephalus. CRANIUM: The CT scan showed a small bony defect in the inner table of the skull in the right frontal region. On MRI this defect is filled with fluid and most likely represents an arachnoid granulation. There is no evidence of a solid lesion. ORBITS: Grossly unremarkable. PARANASAL SINUSES/MASTOIDS: Clear VASCULAR SYSTEM: Skull base flow voids intact. OTHER FINDINGS: None. IMPRESSION: No evidence of intracranial lesion. No acute findings
--- NOTE | 2017-04-11 12:53 | PN ---
DATE: 04/11/2017 CHIEF COMPLAINT: Follow up for syncope. SUBJECTIVE: The patient seen and examined at bedside, is doing much better. No further syncopal epi sodes. He had an MRI of the brain which just showed a small right frontal meningioma. Otherwise, no enhancement and no acute intracranial abnormalities otherwise. No focal neurological deficits on ex amination. Endocrinology, Dr. Méndez, is on board and mentioned that her metabolic profile for diabetes is doing well. No acute events overnight. PAST MEDICAL HISTORY: History of morbid obesity, hypertension, hyperlipidemia, chronic kidney diseas e on dialysis, diabetes. REVIEW OF SYSTEMS: A 14-point review of systems is negative except as in HPI. FAMILY HISTORY: Noncontributory. SOCIAL HISTORY: No illicit drug use, smoking, or ETOH abuse. ALLERGIES: No known drug allergies. MEDICATIONS: Reviewed via nurse's reconciliation sheet. PHYSICAL EXAMINATION: VITAL SIGNS: Temperature of 98.4, pulse rate 85, blood pressure 107/60, respiratory rate 20, oxygen saturation 100% on room air. GENERAL: The patient is sitting up in bed in no acute distress. HEENT: Atraumatic, normocephalic. PERRLA. Extraocular muscles intact. NECK: Supple, no JVD, no adenopathy noted. LUNGS: Clear to auscultation. No adventitious sounds. HEART: S1, S2, normal rate and rhythm. No murmurs, rubs, or gallops. ABDOMEN: Soft, nontender, nondistended. Bowel sounds present. EXTREMITIES: No clubbing, no cyanosis. Peripheral pulses 2+ felt bilaterally. NEUROLOGIC: The patient is alert, oriented to person, place, month and year. Speech is fluent, with out any errors. Cranial nerves II through XII are intact. MOTOR: Moves all extremities equally. Toes downgoing bilaterally. SENSORY: Light touch, pinprick, proprioception, vibration is intact, is decreased slightly up to the calves bilaterally. Decreased vibration of the toes. DEEP TENDON REFLEXES: 2+ throughout, 1 at the ankles. COORDINATION: Tequav-ll-npdq intact. GAIT: Deferred for now. LABORATORIES: Today's blood sugar is 158. A1c is 6.8. ASSESSMENT AND PLAN: This is a 46-year-old, morbid obesity, history of diabetes, chronic renal insuf ficiency on dialysis, hypertension, dyslipidemia, came in for a syncopal event, found to have an inci dental right frontal small meningioma, which was confirmed on the MRI, but nothing as a cause of the etiology for syncope. His syncope is likely secondary to volume depletion status post dialysis, supe rimposed underlying transient cerebral hypoperfusion to the brain. At this time, recommend: 1. Keep his blood sugars between 140-180, follow a diabetic diet. 2. Aspirin 81 and Lipitor 10 mg for stroke prevention. 3. Monitor his electrolytes and correct accordingly. Continue with current present medical manageme nt. No further neurological workup needed at this time. Will sign off. Will Urbina MD cc: [phone] TT: 04/11/2017 12:53:08 Confirmation # [id number] Dictation # [id number] [email or web address]
--- NOTE | 2017-04-11 13:16 | PN ---
DATE: 04/11/2017 REASON FOR CONSULTATION AND FOLLOWUP: Syncope, end-stage renal disease on dialysis, started dialysis 5 weeks ago. BRIEF CLINICAL HISTORY: A 46-year-old male, morbidly obese, with past medical history significant fo r chronic renal insufficiency, history of uncontrolled hypertension, history of chronic kidney diseas e, recently started dialysis 5 weeks ago, 2 episodes of syncope, most likely the syncopal episode hap pened secondary to over dialyzed because of the patient's orthostatic hypotension. Denies any furthe r episode of chest pain, shortness of breath, any palpitation. PHYSICAL EXAMINATION: VITAL SIGNS: Temperature afebrile, heart rate 87, blood pressure 107/62. HEENT: PERRLA. Extraocular muscles intact. NECK: Supple. No carotid bruits. No thyromegaly. CHEST: Clear to auscultation. HEART: S1, S2 regular. ABDOMEN: Soft. EXTREMITIES: Clubbing and cyanosis negative. LABORATORY DATA: Blood workup as follows: WBC 4.8, hemoglobin , hematocrit 32.3, platelet coun t 146. Chemistry shows sodium 130, potassium 4, chloride 95, carbon dioxide 28, anion gap of 19, BUN . IMPRESSION: This is a 46-year-old male with a past history of morbid obesity, diabetes, hypertension , hyperlipidemia, chronic renal insufficiency, started on dialysis recently, 2 syncopal episodes, adm itted with syncope. Most likely the syncopal episode is secondary to orthostatic hypotension seconda ry to over diuresed. The patient still with orthostatic hypotension as of yesterday. Off antihypert ensive medication. RECOMMENDATION: Hold all p.o. antihypertensive medication, monitor blood pressure, is on the low kendra e, echo to rule out any structural heart disease. Discussed with Dr. Vegas. Possible discharge adrian n if he remains stable. We will follow with you. Thank you, Dr. Vegas, for providing the opportunity in taking care of the patient. Som Ashley MD cc: [phone] TT: 04/11/2017 13:16:20 Confirmation # [id number] Dictation # [id number] [email or web address]
--- NOTE | 2017-04-11 14:28 | CARD ---
APPROVED REPORT EXAM: Two-dimensional and M-mode echocardiogram with Doppler and color Doppler. INDICATION 2D DIMENSIONS IVSd1.7 (0.7-1.1cm)LVDd4.1 (3.9-5.9cm) LVOT Diameter2.3 (1.8-2.4cm)PWd1.6 (0.7-1.1cm) LVDs2.6 (2.5-4.0cm)FS (%) 36.0 % LVEF (%)66.2 (>50%) M-Mode DIMENSIONS Left Atrium (MM)5.00 (2.5-4.0cm)Aortic Root3.20 (2.2-3.7cm) Aortic Cusp Exc.1.80 (1.5-2.0cm) Aortic Valve AoV Peak Gpxnumgl296.0cm/sAoV VTI47.9cmAO Peak GR.35mmHg LVOT Peak Vummsgvf23.5cm/sLVOT VTI18.20cmAO Mean GR.17mmHg RADHA (VMAX)1.89tt0TBY (VTI)1.58cm2 Mitral Valve MV E Hljjwljy20.8cm/sMV A Aheouxpz25.2cm/sE/A ratio0.9 TDI Lateral E' Peak V12.70cm/sMedial E' Peak V9.36cm/sE/Lateral E'4.4 E/Medial E'6.0 Tricuspid Valve TR Peak Mmxltzua566td/sRAP AUXWZCSC16hfZhCC Peak Gr.14mmHg SOQD78fjXb LEFT VENTRICLE The left ventricle is normal size. There is mild to moderate concentric left ventricular hypertrophy. The left ventricular function is normal.EF-65% . There is normal LV segmental wall motion. Transmitral Doppler flow pattern is Grade III-reversible restrictive diastolic dysfunction. No left ventricle thrombus noted on this study. There is no ventricular septal defect visualized. There is no left ventricular aneurysm. There is no mass noted in the left ventricle. RIGHT VENTRICLE The right ventricle is normal size. There is normal right ventricular wall thickness. The right ventricular systolic function is normal. ATRIA The left atrium is moderately dilated. The right atrium size is normal. The interatrial septum is intact with no evidence for an atrial septal defect. AORTIC VALVE The aortic valve is calcified and displays decreased opening. There is trace aortic regurgitation. There is mild valvular aortic stenosis. There is no aortic valvular vegetation. MITRAL VALVE The mitral valve is thickened but opens well. Mitral regurgitation is trace. There is no mitral valve stenosis. There is no evidence of mitral valve prolapse. TRICUSPID VALVE The tricuspid valve leaflets are thickened , but open well. There is trace tricuspid regurgitation.RVSP-24 mmof hg. There is no tricuspid valve stenosis. There is no tricuspid valve prolapse or vegetation. PULMONIC VALVE The pulmonary valve is normal in structure. There is trace pulmonic valvular regurgitation. There is no pulmonic valvular stenosis. GREAT VESSELS The aortic root is normal in size. The ascending aorta is normal in size. The pulmonary artery is normal. The IVC is normal in size and collapses >50% with inspiration. PERICARDIAL EFFUSION There is no pleural effusion. There is no pericardial effusion. <Conclusion> The left ventricle is normal size. There is mild to moderate concentric left ventricular hypertrophy. The left ventricular function is normal.EF-65% There is trace aortic regurgitation. There is mild valvular aortic stenosis. Mitral regurgitation is trace. There is trace tricuspid regurgitation.RVSP-24 mmof hg. The IVC is normal in size and collapses >50% with inspiration. No vegetation or thrombus noted.
--- NOTE | 2017-04-11 17:17 | CP.PCM.PN ---
Subjective - Date & Time of Evaluation Date of Evaluation: 04/11/17 Time of Evaluation: 17:17 - Subjective Subjective: no events overnight no dizziness since admission Objective - Vital Signs/Intake and Output Vital Signs (last 24 hours): Temp Pulse Resp BP Pulse Ox 98.7 F 88 20 118/72 100 04/11/17 12:00 04/11/17 14:00 04/11/17 12:00 04/11/17 12:00 04/11/17 06:00 Intake and Output: 04/11/17 04/11/17 06:59 18:59 Intake Total 120 Balance 120 - Medications Medications: Current Medications Acetaminophen (Tylenol 325mg Tab) 650 mg PO Q4H PRN PRN Reason: Pain, Mild (1-3) Aspirin (Ecotrin) 81 mg PO DAILY [facility] Last Admin: 04/11/17 10:45 Dose: 81 mg Atorvastatin Calcium (Lipitor) 10 mg PO DIN [facility] Last Admin: 04/10/17 17:44 Dose: 10 mg Calcitriol (Rocaltrol) 0.5 mcg PO MWF [facility] Last Admin: 04/10/17 11:05 Dose: 0.5 mcg Heparin Sodium (Porcine) (Heparin) 2,000 units IVP ONCE JORD[facility] PRN Reason: Protocol Insulin Human Regular (Humulin R Low) 0 units SC ACHS [facility] PRN Reason: Protocol Last Admin: 04/11/17 13:43 Dose: 1 units Repaglinide (Prandin) 0.5 mg PO AC [facility] Last Admin: 04/11/17 13:43 Dose: 0.5 mg Sevelamer HCl (Renagel) 1,600 mg PO TID [facility] Last Admin: 04/11/17 10:45 Dose: 1,600 mg Vitamin B Complex/Vit C/Folic Acid (Nephro-Ynes) 1 tab PO 0800 [facility] Last Admin: 04/11/17 08:52 Dose: 1 tab - Labs Labs: 04/10/17 06:01 04/10/17 06:01 PT 11.0 Seconds (9.9-11.8) 04/08/17 21:20 INR 1.02 (0.93-1.08) 04/08/17 21:20 APTT 23.6 Seconds (23.7-30.8) L 04/08/17 21:20 - Constitutional Appears: Non-toxic, No Acute Distress - Head Exam Head Exam: NORMAL INSPECTION - Eye Exam Eye Exam: Normal appearance - ENT Exam ENT Exam: Mucous Membranes Moist - Neck Exam Neck Exam: Normal Inspection - Respiratory Exam Respiratory Exam: NORMAL BREATHING PATTERN - Cardiovascular Exam Cardiovascular Exam: REGULAR RHYTHM - GI/Abdominal Exam GI & Abdominal Exam: Soft - Extremities Exam Extremities Exam: Normal Inspection - Neurological Exam Neurological Exam: Alert, Awake, Oriented x3 - Psychiatric Exam Psychiatric exam: Normal Affect - Skin Skin Exam: Dry Assessment and Plan - Assessment and Plan (Free Text) Assessment: esrd/dm/htn/syncope hd mwf, continue per schedule lytes reviewed syncope work up per primary team anemia stable
[2017-04-12] MEDS: Insulin Reg-LOW-Coverage SC SCH ×4 (07:45→21:31)
[2017-04-12] MEDS: Multivitamin Vitamin B Complex (Nephro-Vite) Tab PO SCH (07:46)
--- NOTE | 2017-04-12 09:15 | PN ---
DATE: 04/12/2017 ROOM: 276 This is a 46-year-old male with end-stage renal disease and dialysis dependence presenting here with a brief bout of unresponsiveness and recurrent syncopal episodes and is now undergoing cardiac and ne urologic workup at this time and is also being followed closely for diabetic management. His glycemi c levels are fluctuating, but much improved at this time and the latest glucose levels have ranged fr om 83-119 and 140 mg/dL. His latest chemistry showed a BUN of 62, sodium 138, potassium 4.0, chlorid e 95, CO2 of 28, glucose 123 and creatinine 14.2. So, at this time, we will continue the low-dose rapid acting oral hypoglycemic therapy as given with Prandin given as 0.5 mg p.o. t.i.d. before meals as ordered. We will continue the low dose correctio n scale using regular insulin as given. We will titrate incrementally as indicated to optimize metab olic control. We will follow. Annita Méndez MD cc: [id number] TT: 04/12/2017 09:15:02 Confirmation # [id number] Dictation # [id number] sn
--- NOTE | 2017-04-12 10:21 | PN ---
DATE: 04/12/2017 This is a 46-year-old male. Nursing staff relates that there were no problems during the night. PHYSICAL EXAMINATION: VITAL SIGNS: His temp is 97.9, his pulse is 87, his blood pressure is 123/79, respiratory rate is 20 , oxygen sat is 99% on room air. GENERAL: He is alert and oriented x 3. LUNGS: Clear. HEART: Has an S1, S2 rhythm. Grade II/ systolic murmur. ABDOMEN: Soft, obese, positive bowel sounds. EXTREMITIES: Show no evidence of edema. The patient had a blood sugar this morning of 119. 1. He is scheduled for dialysis tomorrow. He is currently on Nephro-Ynes 1 tablet daily, Lipitor 10 mg daily, Renagel 1600 mg 3 times a day, calcitriol 0.5 mcg Thursday, Thursday, Thursday. He is being followed by nephrology. 2. He has had several syncopal episodes. Evaluation is in progress. He has been seen by cardiology and neurology. He was noted to have a small meningioma in the right frontal area on MRI of the [facility] n. Recommendation by neurology is to continue his anti-statin medication, monitor his electrolytes, control his sugar with followup and monitoring of the meningioma. 3. He has been having bouts of uncontrolled diabetes. Endocrinology has placed the patient on Prand in with a fingerstick coverage. We will continue to monitor this. He is on a renal diet as well. I discussed with the patient all of the clinical findings. He is scheduled for dialysis in the [facility] and we will attempt to see if we can adjust his dialysis schedule and await their final input tree rding his fluctuation in his blood pressure and the volumes that they have been using, dialyzing him with. Shaina Vegas MD cc: [id number] TT: 04/12/2017 10:20:42 Confirmation # [id number] Dictation # [id number] en
--- NOTE | 2017-04-12 13:35 | PN ---
DATE: 04/12/2017 REASON FOR CONSULTATION AND FOLLOWUP: Syncope, end-stage renal disease on dialysis, started 5 weeks ago, orthostatic hypotension on admission. BRIEF CLINICAL HISTORY: A 46-year-old male with past medical history significant for end-stage renal disease who had a syncopal episode after having dialysis. The patient found to be orthostatic, most likely syncope secondary to orthostatic hypotension. No evidence of arrhythmia noted during the sta y in the hospital. PHYSICAL EXAMINATION: VITAL SIGNS: Temperature afebrile, heart rate 89, blood pressure ____/79. HEENT: PERRLA. Extraocular muscles intact. NECK: Supple. No carotid bruits. No thyromegaly. CHEST: Clear to auscultation. HEART: S1, S2 regular. ABDOMEN: Soft. EXTREMITIES: Clubbing and cyanosis negative. LABORATORY DATA: Blood workup as follows: WBC 4.8, hemoglobin ____, hematocrit 32.3, platelet count 146. Chemistry shows sodium 130, potassium 4, chloride ____, carbon dioxide 28, anion gap of 19, BU N 62, creatinine 14.2. TSH 3.32. Total protein 7.7, albumin 4, albumin/globulin ratio 1.3. Triglyc erides 142, cholesterol 201, LDL 98, HDL 48. IMPRESSION: This is a 46-year-old male with end-stage renal disease, obesity, admitted with syncope, was orthostatic on admission. No arrhythmia noted. No evidence of acute coronary syndrome. Histor y of chronic renal insufficiency, now 5 days patient on dialysis ____. After dialysis, the patient h ad 2 syncopal episodes, possibly secondary to over diuresis and shift of electrolytes as well as inte rvascular volume depleted. The patient had repeat echo done yesterday that showed preserved left renuka tricular function, ejection fraction 65%, mild valvular aortic stenosis, calcified mitral valve, trac e mitral regurgitation, trace tricuspid, right ventricular systolic pressure 24, orthostatic hypotens ion on admission. RECOMMENDATION: Now patient is stable. Hold all p.o. antihypertensive medication. Continue baby as pirin 81 mg. Continue atorvastatin to prevent deterioration of rapid valve and from hyperlipidemia a s well as ____ because the patient has renal insufficiency. We will follow with you. Will increase atorvastatin to 20 mg daily. We will follow with you. Consider discontinuing telemetr y. No further cardiac workup is planned at this time. Thank you, Dr. Vegas for providing the opportunity in taking care of the patient. No cardiac workup is warranted at this time. Som Ashley MD cc: [id number] TT: 04/12/2017 13:35:18 Confirmation # [id number] Dictation # [id number] rn
[2017-04-13 05:57] VITALS: O2SAT 97
[2017-04-13 06:43] LABS: ADD MANUAL DIFF? NO
[2017-04-13 07:00] LABS: ALB/GLOB RATIO 1.2 (1.1-1.8); BILIRUBIN,TOTAL 0.5 mg/dL (0.2-1.3); CALCIUM 8.8 mg/dL (8.4-10.5); MAGNESIUM 2.5 mg/dL (1.7-2.2); PHOSPHOROUS 6.9 mg/dL (2.5-4.5); POTASSIUM 4.4 mmol/L (3.6-5.0); TOTAL PROTEIN 7.4 g/dL (5.8-8.3)
[2017-04-13 07:03] LABS: BASO # 0.02 K/mm3 (0.0-2.0); BASO % 0.4 % (0.0-3.0); EOS # 0.2 (0.0-0.7); EOS % 3.7 % (1.5-5.0); GRAN # 2.72 (1.4-6.5); GRAN % 56.3 % (50.0-68.0); HEMATOCRIT 30.2 % (42.0-52.0); LYMPH # 1.6 (1.2-3.4); LYMPH % 32.2 % (22.0-35.0); MEAN CELL VOLUME 85.6 fL (80.0-105.0); MEAN CORPUSCULAR HEMOGLOBIN 27.8 pg (25.0-35.0); MEAN CORPUSCULAR HGB CONC 32.5 g/dl (31.0-37.0); MEAN PLATELET VOLUME 9.2 fl (7.0-11.0); MONO # 0.4 (0.1-0.6); MONO % 7.4 % (1.0-6.0); PLATELET COUNT 162 10^3/uL (120.0-450.0); RED CELL DISTRIBUTION WIDTH 15.7 % (11.5-14.5); WHITE BLOOD COUNT 4.8 10^3/ul (4.5-11.0)
[2017-04-13] MEDS: Insulin Reg-LOW-Coverage SC SCH ×2 (07:44→11:55)
--- NOTE | 2017-04-13 10:15 | PN ---
DATE: 04/13/2017 REASON FOR CONSULTATION AND FOLLOWUP: Syncope, end-stage renal disease on dialysis, started 5 weeks ago, orthostatic hypotension on admission. BRIEF CLINICAL HISTORY: A 46-year-old male with a past medical history significant for end-stage renal disease, recently started dialysis 5 weeks ago, admitted with 2 episodes of syncope. The patient had orthostatic hypotension. No arrhythmia noted. PHYSICAL EXAMINATION: VITAL SIGNS: Temperature afebrile, heart rate 83, blood pressure 136/72. HEENT: PERRLA. Extraocular muscles intact. NECK: Supple. No carotid bruits. No thyromegaly. CHEST: Clear to auscultation. HEART: S1, S2 regular. ABDOMEN: Soft. EXTREMITIES: Clubbing, cyanosis negative. BLOOD WORKUP: WBC 4.9, hemoglobin 9., hematocrit 30.2, platelet count 162. Chemistry shows sodium , potassium 4.4, chloride 96, carbon dioxide 21, anion gap of 22, BUN 46 , creatinine 16.6. IMPRESSION: A 46-year-old male, obese, body mass index 42.2 kg/meter squared, admitted with 2 episodes of syncope. On admission, patient had orthostatic hypotension, possibly secondary to over dialyzed fluid. Now the orthostasis is compensated, no more orthostatic hypotension noted. Lying blood pressure 126/66 , standing 128/72, sitting 132/20. End-stage renal disease on dialysis, diabetes, hypertension, hyperlipidemia, morbid obesity. The patient had a repeat echocardiography done day before yesterday that is Thursday that shows mild aortic stenosis, trace aortic regurgitation, trace mitral regurgitation, trace tricuspid regurgitation, right ventricular systolic pressure is 24, ejection fraction 65%. RECOMMENDATION: Keep off all antihypertensive medication. Continue baby aspirin. Continue atorvastatin to prevent deterioration of the valve. Discontinue telemetry. Possible discharge when medically stable, but from cardiology point of view, patient is stable. We will discontinue telemetry. Thank you, Dr. Vegas, for providing us the opportunity in taking care of the patient. Som Ashley MD cc: [phone] TT: 04/13/2017 10:14:25 Confirmation # [id number] Dictation # [id number] en ESTRELLITA
[2017-04-13] MEDS: Multivitamin Vitamin B Complex (Nephro-Vite) Tab PO SCH (10:49)
[2017-04-13 12:27] VITALS: BP 102/69; PULSE 94; RESP 19; TEMP 98.4
--- NOTE | 2017-04-13 14:16 | CP.PCM.PN ---
Subjective - Date & Time of Evaluation Date of Evaluation: 04/13/17 Time of Evaluation: 11:15 - Subjective Subjective: Follow up Nephrology Consultation: Assessment: Stable Diabetic chronic Kidney Disease (E11.22) biopsy proven Hypertensive Chronic Kidney Disease (I12.0) End stage renal disease (N18.6) dependence on hemodialysis (Z99.2) (MWF) via permacath Anemia (D64.9), Hyperphosphatemia (E83.39), Secondary Hyperparathyroidism (E21.1 ), HTN (I12.0) morbid obesity dizziness/syncope ? hemodynamic due to excess fluid removal during HD Plan: Plan for dialysis today as ordered. Continue with Nephrovite 1 tab/day. PRBC as needed for anemia. On MELANY as Mircera 50 mcg q 2 weeks, last Hb 9.8 started him on renagel, last phos level 6.9 Continue with calcitriol 0.5 mcg with dialysis. Last PTH level 951 BP controlled without meds. Pt was advised to limit weight gain between dialysis treatment to 1 Kgs/day. Increased his EDW to 146 kgs as outpt. Glycemic control, Dialysis consistent diet Further work up/management as per primary team. neurology and cardiology are following. Dose meds/antibiotics (if needed) for ESRD status. Avoid fleets enema/magnesium based laxatives. Thanks for allowing me to participate in care of your patient. Pt planned for d/ c home today, stable from renal perspective. d/w primary team Dr Pedro Denton Office: [phone] HPI: Pt is a 46 y/o M with hx of ESRD on hemodialysis (MWF) via Rt chest permacath, has maturing left AVF, last dialysis yesterday, chronic anemia, hyperphosphatemia, secondary hyperparathyroidism, Diabetes Mellitus, hypertension, morbid obesity presented with complaints of dizziness and transient loss of consciousness at home yesterday evening. pt says he finished dialysis at 6:30 in evening, 3.7 Kgs was taken off and he left the unit at 144.6 Kgs. At home, he had episode of dizziness soon after his EDW was lowered from 149 kgs to 145 kgs over last 2 weeks. pt says he had lost close to 60 lbs weight over last few month. reports similar incidence 2 weeks ago when his all BP meds were stopped. he was admitted to [facility] in [place] 2017 and started on dialysis due to uremic. he has biopsy proven diabetic nephropathy. ROS: Denies chest pain, palpitation, shortness of breath, leg swelling he feels usual self at this time. Physical Examination: General Appearance: Comfortable, in no acute respiratory distress, co-operative . morbid obese Vitals reviewed and noted as below BMI 43 Lungs: Normal respiratory rate/effort. Breath sounds bilateral equal and clear. Rt chest permacath Heart: Normal rate. s1s2 normal. No rub or gallop. Extremities: no edema. No varicose veins Neurological: Patient is alert, awake and oriented to person, place and time. No focal deficit. Strength bilateral appropriate and equal Skin: Warm and dry. Normal turgor. No rash. Palpitation: Normal elasticity for age Abdomen: Abdomen is soft. Bowel sounds +. There is no abdominal tenderness, no guarding/rigidity or organomegaly Psych: normal insight and normal affect/mood MSK: no joint tenderness or swelling. Digits and nails normal, no deformity : kidney or bladder not palpable Access: left arm AVF and chest permacath Labs/imaging reviewed. Past medical history, past surgical history, family history, social history, allergy reviewed and noted as below Family Hx: no hx of CKD. Non contributory echo: normal LVEF Objective - Vital Signs/Intake and Output Vital Signs (last 24 hours): Temp Pulse Resp BP Pulse Ox 98.4 F 94 H 19 102/69 97 04/13/17 12:00 04/13/17 12:00 04/13/17 12:00 04/13/17 12:00 04/13/17 05:56 - Medications Medications: Current Medications Acetaminophen (Tylenol 325mg Tab) 650 mg PO Q4H PRN PRN Reason: Pain, Mild (1-3) Aspirin (Ecotrin) 81 mg PO DAILY [facility] Last Admin: 04/13/17 10:48 Dose: 81 mg Atorvastatin Calcium (Lipitor) 20 mg PO DIN [facility] Last Admin: 04/12/17 17:29 Dose: 20 mg Calcitriol (Rocaltrol) 0.5 mcg PO MWF [facility] Last Admin: 04/13/17 10:49 Dose: 0.5 mcg Heparin Sodium (Porcine) (Heparin) 2,000 units IVP ONCE [facility] PRN Reason: Protocol Insulin Human Regular (Humulin R Low) 0 units SC ACHS [facility] PRN Reason: Protocol Last Admin: 04/13/17 11:55 Dose: Not Given Repaglinide (Prandin) 0.5 mg PO AC [facility] Last Admin: 04/13/17 12:00 Dose: 0.5 mg Sevelamer HCl (Renagel) 1,600 mg PO TID [facility] Last Admin: 04/13/17 10:49 Dose: 1,600 mg Vitamin B Complex/Vit C/Folic Acid (Nephro-Ynes) 1 tab PO 0800 [facility] Last Admin: 04/13/17 10:49 Dose: 1 tab - Labs Labs: 04/13/17 06:30 04/13/17 06:30 PT 11.0 Seconds (9.9-11.8) 04/08/17 21:20 INR 1.02 (0.93-1.08) 04/08/17 21:20 APTT 23.6 Seconds (23.7-30.8) L 04/08/17 21:20
--- NOTE | 2017-04-13 16:45 | PN ---
DATE: 04/13/2017 ROOM: 276 This is a 46-year-old male with recent uncontrolled type 2 diabetes, presenting here with a syncopal episode and a brief bout of unresponsiveness and has undergone a neurologic and cardiac workup as not ed thereof. His glycemic levels are much improved at this time and have ranged from 100-106 and 125 mg/dL. His l atest chemistry showed a BUN of 62, sodium 138, potassium 4.0, chloride 95, CO2 of 28, glucose 123 an d creatinine 14.2. So at this time, we will continue the same low dose oral hypoglycemic therapy to allow for dose equil ibration and keep him on the Prandin given as 0.5 mg p.o. t.i.d. before meals as ordered. We will ti trate incrementally as indicated to optimize metabolic control. We will obtain serial chemistries an d supplement accordingly as needed. We will follow. Annita Méndez MD cc: [id number] TT: 04/13/2017 16:44:01 Confirmation # [id number] Dictation # [id number] en
--- NOTE | 2017-04-13 20:14 | DS ---
SUBJECTIVE: A 46-year-old male admitted to [facility] for syncopal episode with underlying his tory of chronic renal disease on dialysis, cardiomyopathy, insulin-dependent diabetes, interstitial n ephritis of the kidney, obesity. The patient was seen in the hospital by Dr. Méndez of the endocrinolog y service, who placed the patient on Prandin 0.5 mg 3 times a day with meals and follow his fin gerstick blood sugars 2-3 times a day with a sliding scale to adjust as an outpatient. He was seen b y nephrology, Dr. Denton and Dr. Mckeon, who recommended that the patient be followed up as an outpatient on dialysis and to continue his medications, consisting of Lipitor 20 mg daily as per cardiology; Ne phro-Ynes 1 tablet daily; Renagel 1600 mg 3 times a day; Rocaltrol 0.5 mcg Thursday, Thursday, Thursday. The patient will be on dialysis 3 times a week and be followed by them on the dialysis unit. He wa s seen by cardiology, found to have some mild aortic disease. The echocardiogram was reported to sulaiman stephens an ejection fraction of 65%. He will be followed up as an outpatient. Neurology saw the patient. He was found to have a small right frontal meningioma. Recommendation was to be followed up as an o utpatient. All clinical findings were discussed with the patient and his family and he will be follo wed as an outpatient. LABORATORY DATA: On discharge, his WBC was 4.8, RBC 3.53, hemoglobin 9.8, hematocrit 30.2, platelet count 162. Chemistry predialysis showed a sodium of 135, potassium 4.4, chloride 96. The creatinine was 16.6. His BUN was 73, phosphorus is 6.9, magnesium of 2.5. PLAN: He was cleared by all consultants for discharge and will be followed as an outpatient. He had secondary hyperparathyroidism as well. Shaina Vegas MD cc: [id number] TT: 04/13/2017 20:13:47 ln
== END 2017-04-13 16:53 | disposition home or self-care (01) | DRG 141 ==
LOC: ED 20:39 → ERH 23:04 → CCU 04-09 02:16 → OBSVTOIN 04-09 07:32 → 2RSO 04-10 04:49
PROVIDERS: ADMIT Internal Medicine; ATTEND Internal Medicine
PROC: 5A1D00Z (ICD-10-PCS; principal; 2017-04-10)
DX: I95.1 Orthostatic hypotension (principal); E86.9 Volume depletion, unspecified; I12.0 Hypertensive chronic kidney disease with stage 5 chronic kidney disease or end stage renal disease; N18.6 End stage renal disease; I42.9 Cardiomyopathy, unspecified; E11.21 Type 2 diabetes mellitus with diabetic nephropathy; E11.22 Type 2 diabetes mellitus with diabetic chronic kidney disease; I08.3 Combined rheumatic disorders of mitral, aortic and tricuspid valves; E11.65 Type 2 diabetes mellitus with hyperglycemia; N25.81 Secondary hyperparathyroidism of renal origin; D32.0 Benign neoplasm of cerebral meninges; E83.39 Other disorders of phosphorus metabolism; E66.01 Morbid (severe) obesity due to excess calories; D64.9 Anemia, unspecified; E78.5 Hyperlipidemia, unspecified; Z99.2 Dependence on renal dialysis; Z87.891 Personal history of nicotine dependence; Z68.41 Body mass index [BMI] 40.0-44.9, adult; Z79.4 Long term (current) use of insulin